=== PATIENT | female | born 1965 | race Caucasian/White ===

== ENCOUNTER 2018-10-30 14:57 | Emergency (ER) | payer OTHER, MEDICARE ==
[2018-10-30 15:41] VITALS: TEMP 98.6; BMI 21.7
[2018-10-30 16:21] LABS: BASO % 0.2 % (0-2.0); EOS % 0.8 % (0-4.5); HEMATOCRIT 43.4 % (32.4-45.2); HEMOGLOBIN 14.2 GM/dl (10.7-15.3); LYMPH % 13.2 % (8-40); MCH 29.6 pg (25.7-33.7); MCHC 32.6 g/dl (32.0-36.0); MEAN CELL VOLUME 90.7 fl (80-96); MEAN PLT VOLUME 9.6 fl (7.5-11.1); MONO % 3.8 % (3.8-10.2); PLATELET COUNT 270 K/MM3 (134-434); RBC 4.78 M/mm3 (3.60-5.2); RDW 12.7 % (11.6-15.6); WHITE BLOOD COUNT 7.3 K/mm3 (4.0-10.8)
[2018-10-30 16:31] LABS: ALBUMIN 4.1 g/dl (3.4-5.0); BILIRUBIN,TOTAL 1.7 mg/dl (0.2-1); CALCIUM 9.8 mg/dl (8.5-10); POTASSIUM 4.3 mmol/L (3.5-5.1); TOT PROT 6.8 g/dl (6.4-8.2)
--- NOTE | 2018-10-30 17:10 | PDOC ---
History of Present Illness - General Chief Complaint: Pain Stated Complaint: EPIGASTRIC PAIN RADIATES TO BACK FOR 1 1/2 WEEK Time Seen by Provider: 10/30/18 15:08 History Source: Patient Exam Limitations: No Limitations - History of Present Illness Initial Comments: 10/30/18 17:04 CHIEF COMPLAINT: Epigastric and chest pain for about 2 weeks HISTORY OF PRESENT ILLNESS: Patient is a 53-year-old female with a history of end-stage renal disease status post kidney transplant with good renal function, baseline creatinine 0.8 currently, status post pancreatic transplant for diabetes mellitus, now off diabetic medication. She is followed at [facility] by the transplant team. She was last seen approximately 3 weeks ago. Patient also has chronically abnormal liver function tests and has been extensively worked up for hepatitis. All testing was negative and this is felt to be either familial or related to her medications. Patient presents complaining of a few weeks of constant epigastric discomfort radiating up to the chest. The discomfort also radiates to the back. It does not wax and wane. It has been present constantly for 10 days, and also present for several weeks although more minor. There is no nausea or vomiting. There is a slight cough and a feeling of not being able to take full breaths. There is no change in exercise capacity. REVIEW OF SYSTEMS: GENERAL/CONSTITUTIONAL: No fever or chills. No weakness. No weight change. HEAD, EYES, EARS, NOSE AND THROAT: No change in vision. No ear pain or discharge. No sore throat. CARDIOVASCULAR: Positive chest pain with inability to take a deep breath. RESPIRATORY: Slight tickle of a cough. No wheezing or hemoptysis. GASTROINTESTINAL: No nausea, vomiting, diarrhea or constipation. No rectal bleeding. GENITOURINARY: No dysuria, frequency, or change in urination. MUSCULOSKELETAL: No joint or muscle swelling or pain. No neck or back pain. SKIN AND BREASTS: No rash or easy bruising. NEUROLOGIC: No headache, vertigo, loss of consciousness, or loss of sensation. PSYCHIATRIC: No depression or anxiety. ENDOCRINE: No increased thirst. No abnormal weight change. HEMATOLOGIC/LYMPHATIC: No anemia, easy bleeding, or history of blood clots. ALLERGIC/IMMUNOLOGIC: No hives or skin allergy. No latex allergy. Past History - Past Medical History Allergies/Adverse Reactions: Allergies Allergy/AdvReac Type Severity Reaction Status Date / Time No Known Allergies Allergy Verified 10/30/18 15:00 Home Medications: Ambulatory Orders Levothyroxine [Synthroid -] 100 mcg PO DAILY 09/05/11 Aspirin [ASA -] 325 mg PO DAILY 10/30/18 Mycophenolate Mofetil 500 mg PO BID 10/30/18 Jackson-3/Dha/Epa/Fish Oil [Jackson 3 500 Softgel] 2 each PO BID 10/30/18 Prednisone 5 mg PO DAILY 10/30/18 Ranitidine [Zantac -] 150 mg PO BID #60 tablet 10/30/18 Tacrolimus 2 mg PO BID 10/30/18 COPD: No Diabetes: Yes (resolved post pancreatic transplant) HTN: Yes Thyroid Disease: Yes Other medical history: H/O RENAL DISEASE S/P DIALYSIS REQUIRING KIDNEY TRANSPLANT - Surgical History GI Surgery: Yes (pancreatic and renal transplant 2014, SBO with lysis of adhesions) - Suicide/Smoking/Psychosocial Hx Smoking Status: No Smoking History: Never smoked Number of Cigarettes Smoked Daily: 0 Information on smoking cessation initiated: No Hx Alcohol Use: No Drug/Substance Use Hx: No *Physical Exam - Vital Signs Last Vital Signs Temp Pulse Resp BP Pulse Ox 98.6 F 94 H 16 138/88 98 10/30/18 15:00 10/30/18 15:00 10/30/18 15:00 10/30/18 15:00 10/30/18 15:00 - Physical Exam Comments: 10/30/18 17:08 GENERAL: The patient is awake, alert, and fully oriented, in no acute distress. She appears well. HEAD: Normal with no signs of trauma. EYES: Pupils equal, round and reactive to light, extraocular movements intact, sclera anicteric, conjunctiva clear. ENT: Ears normal, nares patent, oropharynx clear without exudates. Moist mucous membranes. NECK: Normal range of motion, supple without lymphadenopathy, JVD, or masses. LUNGS: Breath sounds equal, clear to auscultation bilaterally. No wheezes, and no crackles. HEART: Regular rate and rhythm, normal S1 and S2 with systolic murmur over the entire precordium, no rub or gallop. ABDOMEN: Soft, nontender, normoactive bowel sounds. No guarding, no rebound. No masses. Midline surgical scar with a small epigastric diastases of deep fascia with mild tenderness in the area of the defect. EXTREMITIES: Normal range of motion, no edema. No clubbing or cyanosis. No cords, erythema, or tenderness. NEUROLOGICAL: Cranial nerves II through XII grossly intact. Normal speech, normal gait. PSYCH: Normal mood, normal affect. SKIN: Warm, Dry, normal turgor, no rashes or lesions noted. Heart Score/ECG Review - ECG Impressions Comment:: 10/30/18 17:11 12-lead EKG shows normal sinus rhythm at a rate of 80 bpm. The axis is normal. The intervals are normal. There are no acute ST elevations or abnormal ST depressions. Impression: Normal 12-lead EKG. ED Treatment Course - LABORATORY CBC & Chemistry Diagram: 10/30/18 15:40 10/30/18 15:40 - ADDITIONAL ORDERS Additional order review: Laboratory Results 10/30/18 10/30/18 15:40 15:40 Sodium 143 Potassium 4.3 Chloride 107 Carbon Dioxide 28 Anion Gap 8 BUN 21.0 H Creatinine 1.0 Est GFR (CKD-EPI)AfAm 73.45 Est GFR (CKD-EPI)NonAf 63.37 Random Glucose 96 Calcium 9.8 Total Bilirubin 1.7 H AST 154 H ALT 125 H Alkaline Phosphatase 175 H Creatine Kinase 50 Troponin I < 0.03 Total Protein 6.8 Albumin 4.1 10/30/18 15:40 RBC 4.78 MCV 90.7 MCHC 32.6 RDW 12.7 MPV 9.6 Neutrophils % 82.0 Lymphocytes % 13.2 Monocytes % 3.8 Eosinophils % 0.8 Basophils % 0.2 - RADIOLOGY Radiology Studies Ordered: Category Date Time Status CHEST PA & LAT [RAD] Stat Radiology 10/30/18 15:31 Taken Medical Decision Making - Medical Decision Making 10/30/18 17:29 53-year-old female status post renal and pancreatic transplant for hypertension , renal failure, and diabetes mellitus. Patient presents now with 1-1/2-2 weeks of epigastric, chest, and pain into the back. No fever, no nausea and vomiting, or diarrhea. No problems eating despite history of small bowel obstruction. Examination is notable for normal heart and lungs with a soft flow murmur ( chronic) and healed midline surgical scar in the abdomen with some mild tenderness at the site of the scar. No other significant findings. Laboratory workup reveals normal CBC, and chemistry notable for elevated liver function tests. Of note, patient has chronic elevated liver function tests including transaminases, bilirubin, and alkaline phosphatase per her report. This is been ongoing for a long period of time and workup has been negative, her physicians ascribed this to medication effects versus familial. Impression: Possible acid peptic disease with epigastric, chest, and back symptoms. Normal cardiac workup with normal EKG and troponin. Symptoms are not cardiac sounding by history. Plan: Start patient on H2 pierre ranitidine for possible acid peptic disease. Refer back to her transplant physician for further follow-up. *DC/Admit/Observation/Transfer Diagnosis at time of Disposition: Abdominal pain Qualifiers: Abdominal location: upper abdomen, unspecified Qualified Code(s): R10.10 - Upper abdominal pain, unspecified Chest pain Qualifiers: Chest pain type: unspecified Qualified Code(s): R07.9 - Chest pain, unspecified - Discharge Dispostion Disposition: HOME Condition at time of disposition: Stable Decision to Admit order: No - Prescriptions Prescriptions: Ranitidine [Zantac -] 150 mg PO BID #60 tablet - Referrals - Patient Instructions Printed Discharge Instructions: DI for Gastroesophageal Reflux Disease (GERD) Additional Instructions: Today you were evaluated for chest and abdominal pain. The diagnosis may be acid reflux disease. Continue your current medications. Take a new prescription ranitidine 150 mg twice a day to reduce acid. Follow-up tomorrow by phone with your transplant physician to discuss your new medication. Bring a copy of your laboratory results including elevated liver function tests to your next transplant appointment. It is recommended that he follow-up within the next week. Return to the emergency department for any severe or progressive symptoms. - Post Discharge Activity
[2018-10-30 17:46] VITALS: BP 125/84; PULSE 85
--- NOTE | 2018-10-31 08:19 | EKG ---
Test Reason : Blood Pressure : / mmHG Vent. Rate : 080 BPM Atrial Rate : 080 BPM P-R Int : 144 ms QRS Dur : 094 ms QT Int : 380 ms P-R-T Axes : 058 013 050 degrees QTc Int : 438 ms NORMAL SINUS RHYTHM NORMAL ECG NO PREVIOUS ECGS AVAILABLE Confirmed by SHREE CASTELLANO, HEDY ([id number]) on 10/31/2018 8:18:58 AM Referred By: Confirmed By:HEDY SWANN MD
== END 2018-10-30 17:46 | disposition home or self-care (01) ==
LOC: FER 14:57
DX: R10.10 Upper abdominal pain, unspecified (principal); I10 Essential (primary) hypertension; E11.9 Type 2 diabetes mellitus without complications; Z94.83 Pancreas transplant status; Z94.0 Kidney transplant status; E07.9 Disorder of thyroid, unspecified
CPT/HCPCS: 36415; 71046-TC-FY; 80053; 82550; 83690; 84484; 85025; 93005; 99284-25

== ENCOUNTER 2021-11-02 12:05 | Emergency (ER) | payer OTHER, MEDICARE ==
[2021-11-02 12:16] VITALS: BP 154/84; PULSE 72; RESP 18; TEMP 97.8; BMI 21.3
== END 2021-11-02 12:50 | disposition home or self-care (01) ==
LOC: FER 12:05
DX: I89.1 Lymphangitis (principal)
CPT/HCPCS: 99281-25

== ENCOUNTER 2024-09-16 19:27 | Emergency (ER) | payer OTHER, MEDICARE ==
[2024-09-16 19:46] VITALS: BP 159/89; PULSE 81; RESP 16; TEMP 97.8; BMI 21.7
[2024-09-16] MEDS ORDERED: ACETAMINOPHEN 500 MG TABLET (FP) ONE (19:50)
[2024-09-16] MEDS: ACETAMINOPHEN 500 MG TABLET (FP) PO ONE (19:50)
== END 2024-09-16 21:00 | disposition home or self-care (01) ==
LOC: FER 19:27
DX: S90.31XA Contusion of right foot, initial encounter (principal); V03.10XA Pedestrian on foot injured in collision with car, pick-up truck or van in traffic accident, initial encounter; Y92.410 Unspecified street and highway as the place of occurrence of the external cause
CPT/HCPCS: 73630-TC-RT-FY; 99283-25